=== PATIENT | female | born 1980 | race Caucasian/White ===

== ENCOUNTER → 2016-12-01 | Outpatient (CLI) | payer BC ==
[~2016-12-01] MED LIST: PRENTAB26 PO
[2016-12-01 10:33] LABS: HEMATOCRIT 35.6 % (37-47)
[2016-12-01 12:33] LABS: URINE APPEARANCE CLOUDY (CLEAR); URINE BILIRUBIN NEG (NEG); URINE COLOR DK YELLOW; URINE EPITHELIAL CELL AUTO >30 /lpf (0-5); URINE NITRITE NEG (NEG); URINE PH 6.5 (4.5-7.5); URINE SPECIFIC GRAVITY 1.015 (1.000-1.030); UROBILINOGEN NEG (NEG)
[2016-12-01 12:37] LABS: GTGD 50 Grams
[2016-12-01 12:42] LABS: MANUAL MICROSCOPIC REQUIRED? NO; REVIEW REQ? NO
== END | disposition home or self-care (01) ==
LOC: C.LAB1850 09:26
PROVIDERS: ATTEND Obstetrics & Gynecology
DX: O09.02 Supervision of pregnancy with history of infertility, second trimester (principal)

== ENCOUNTER → 2016-12-19 | Outpatient (CLI) | payer BC | END | disposition home or self-care (01) | LOC: C.LABBC 15:04 | PROVIDERS: ATTEND Obstetrics & Gynecology | DX: O23.40 Unspecified infection of urinary tract in pregnancy, unspecified trimester (principal) ==

== ENCOUNTER → 2017-01-26 | Outpatient (CLI) | payer BC | END | disposition home or self-care (01) | LOC: C.LABSPEC 13:53 | PROVIDERS: ATTEND Obstetrics & Gynecology | DX: O09.03 Supervision of pregnancy with history of infertility, third trimester (principal); Z3A.00 Weeks of gestation of pregnancy not specified ==

== ENCOUNTER 2017-02-10 20:48 | Inpatient (IN) | payer BC ==
[~2017-02-10] VITALS: Ht 167.6 cm; Wt 103.2 kg
[2017-02-10] MEDS ORDERED: LACTATED RINGER'S 1000ML 1,000 ML IV PRN (20:54)
[2017-02-10 21:28] LABS: HEMATOCRIT 36.5 % (37-47); MEAN CELL VOLUME 89.5 fL (80-100); MEAN CORPUSCULAR HEMOGLOBIN 31.4 pg (25-34); MEAN CORPUSCULAR HGB CONC 35.1 g/dl (32-36); MEAN PLATELET VOLUME 8.6 fL (7.4-10.4); PLATELET COUNT 237 K/uL (130-400); RED BLOOD COUNT 4.08 M/uL (4.2-5.4); WHITE BLOOD COUNT 19.52 K/uL (4.8-10.8)
[2017-02-11] MEDS ORDERED: EpHEDrine SULFATE INJ 50 MG/ML AMP ONE (00:45)
[2017-02-11] MEDS ORDERED: BUPIVACAINE 0.25% 30 ML VIAL ONE (00:45)
[2017-02-11] MEDS ORDERED: FENTANYL 2MCG/ML ROPIV 1.25MG/ML 100ML BAG EPI ONE (00:46)
[2017-02-11] MEDS ORDERED: FENTANYL CITRATE INJ 50 MCG/1 ML 2 ML VIAL ONE (00:46)
[2017-02-11] MEDS: LACTATED RINGER'S 1000ML 1,000 ML IV SCH ×2 (00:55→04:54)
[2017-02-11] MEDS ORDERED: LACTATED RINGER'S 1000ML 500 ML IV PRN (01:14)
[2017-02-11] MEDS ORDERED: NALOXONE HCL INJ 0.4 MG/1 ML VIAL/CARP IV PRN (01:15)
[2017-02-11] MEDS ORDERED: EpHEDrine SULFATE INJ 50 MG/ML AMP IV PRN (01:15)
[2017-02-11 05:37] VITALS: Ht 167.6 cm; Wt 103.2 kg
[2017-02-11] MEDS ORDERED: PRENTAB26 PO (05:41)
[2017-02-11] MEDS: FENTANYL 2MCG/ML ROPIV 1.25MG/ML 100ML BAG EPI PRN ×2 (06:54→10:36)
[2017-02-11] MEDS ORDERED: OXYTOCIN 30 UNITS/500ML NSS IV ONE (09:44)
[2017-02-11] MEDS ORDERED: LACTATED RINGER'S 1000ML 1,000 ML IV SCH (11:51)
[2017-02-11] MEDS ORDERED: ACETAMINOPHEN 325 MG TAB PO PRN (12:00)
[2017-02-11] MEDS ORDERED: ACETAMINOPHEN/CODEINE 300/30MG TAB PO PRN ×2 (12:00)
[2017-02-11] MEDS ORDERED: OXYTOCIN 30 UNITS/500ML NSS IV PRN (12:00)
[2017-02-11] MEDS ORDERED: HYDROCORTISONE ACETATE 25 MG SUPP PR PRN (12:00)
[2017-02-11] MEDS ORDERED: DIPHTHERIA/TETANUS/PERTUSSIS 0.5 ML SYR/VIAL IM. ONE (12:00)
[2017-02-11] MEDS ORDERED: BENZOCAINE 20% AER SPR 82.5 GM CAN EXT PRN (12:00)
[2017-02-11] MEDS ORDERED: LANOLIN OINT EXT PRN ×2 (12:00)
[2017-02-11] MEDS ORDERED: SUPERCREAM 0.870 % 15GM JAR EXT PRN (12:00)
--- NOTE | 2017-02-11 12:56 | Anesthesia Procedure Note ---
Anesthesia Epidural Removal Nt Date & Time Feb 11, 2017 at 12:55 Notes Mental Status: alert / awake / arousable, participated in evaluation Nausea / Vomiting: adequately controlled Pain: adequately controlled Airway Patency, RR, SpO2: stable & adequate BP & HR: stable & adequate Hydration State: stable & adequate Neuraxial Anesthesia: was administered Anesthetic Complications: no major complications apparent, pt satisfied with anesthetic care Epidural: removed without complications, with tip intact
[2017-02-11] MEDS: IBUPROFEN 600 MG TAB PO PRN ×2 (13:53→21:33)
--- NOTE | 2017-02-11 14:31 | DELIVERY SUMMARY ---
DATE OF OPERATION: 02/11/2017 VAGINAL DELIVERY NOTE PREOPERATIVE DIAGNOSES: 1. Mcpherson intrauterine at 39 weeks. 2. Group B negative. POSTOPERATIVE DIAGNOSES: Same. PROCEDURE: Vaginal delivery with repair of second degree laceration. SURGEON: Lisa Smith MD BUILDING CONSULTANT: None. ESTIMATED BLOOD LOSS: 500. COMPLICATIONS: None. DISPOSITION: Stable in labor and delivery. DESCRIPTION OF PROCEDURE: Angelo is a , who presented at 39 weeks. She was initially cared for by my partner Dr. Meeks, and I assumed care of patient when she was completely dilated and beginning to push on the morning of February 11. She pushed well and after just under 2 hours, I was called to patient's room for delivery. The patient was prepped and over the next several pushes, she delivered the head of the which was noted to be in direct occiput posterior position with some swelling on the forehead, consistent with a partially extended presentation. Once the face and head had delivered, the shoulders and remainder of the infant followed with no difficulty. There was a very loose nuchal cord x1 which was easily reduced after delivery of the head and prior to delivery of the shoulders. The infant was placed on the maternal abdomen where it was noted to make respiratory efforts and move all 4 extremities equally, and the cord was doubly clamped and cut by the father of the baby. Attention was turned to the vagina and perineum, where a large posterior vaginal laceration was noted which extended down through the rectovaginal septum and perineum, but did not disrupt either the anal sphincter or the rectal mucosa. Therefore, this is a second degree laceration, however, it was fairly extensive. The repair began with suture in a running locked manner of the posterior vaginal epithelium, this was closed from its apex near the cervix and all the way down to the hymenal ring. [place] sutures were then used to reapproximate the perineal body and closed the rectovaginal space. Once this was done, additional suture was used to reapproximate the perineum and closed skin in a running subcuticular manner. Both at the beginning and at the end of the repair, and rectal exam was done at first to ensure that the sphincter and mucosa were intact. On the completion of the repair, it was repeated to ensure that no suture had penetrated into the rectal space. EBL was estimated at 500 mL. By completion of the repair, the placenta had began to detach and this has been delivered spontaneously and was noted to be intact with the 3-vessel cord. The fundus is firm and lochia is minimal at the present time, and mother and were in stable condition having tolerated delivery well. I attest to the content of the Intraoperative Record and any orders documented therein. Any exceptions are noted below. MTDD
[2017-02-11 15:30] VITALS: BP 120/83; PULSE 109; TEMP 36.7
[2017-02-11 20:20] VITALS: BP 104/70; PULSE 103; TEMP 36.5
[2017-02-11] MEDS: DOCUSATE SODIUM 100 MG CAP PO SCH (20:48)
[2017-02-12 00:25] VITALS: BP 108/70; PULSE 97; TEMP 36.5
[2017-02-12] MEDS: IBUPROFEN 600 MG TAB PO PRN ×4 (00:35→19:52)
[2017-02-12 04:45] VITALS: BP 103/68; PULSE 102; TEMP 36.5
[2017-02-12 07:34] LABS: HEMATOCRIT 27.6 % (37-47)
[2017-02-12 07:50] VITALS: BP 116/78; PULSE 91; TEMP 36.7
[2017-02-12] MEDS: DOCUSATE SODIUM 100 MG CAP PO SCH ×2 (07:59→19:53)
[2017-02-12] MEDS: PRENATAL VITAMIN TAB PO SCH (07:59)
--- NOTE | 2017-02-12 08:38 | Progress Note ---
Subjective Feb 12, 2017. Subjective conversation w/ patient, physical exam Ambulation: ambulating normally Voiding: no voiding problems Passing Gas: Yes Diet Tolerance: Regular Diet [place]ochia: Moderate Feeding Type: Breast Feeding Review of Systems Constitutional: No chills, No fever Respiratory: No cough Cardiac: No chest pain Abdomen: No nausea, No vomiting Objective Vital Signs Date Time Temp Pulse Resp B/P Pulse Ox O2 Delivery O2 Flow Rate FiO2 02/12/17 04:45 36.5 102 18 103/68 Room Air 02/12/17 00:25 Room Air 02/12/17 00:25 36.5 97 18 108/70 Room Air 02/11/17 20:20 36.5 103 14 104/70 Room Air 02/11/17 15:30 36.7 109 22 120/83 Physical Exam General Appearance: WELL-APPEARING, NO APPARENT DISTRESS Respiratory/Chest: no respiratory distress, no accessory muscle use Cardiovascular: no edema Abdomen: non tender, soft Fundus: Firm Extremities: no calf tenderness Laboratory Results Last 24 Hours Test 02/12/17 06:24 Hemoglobin 9.5 g/dL Hematocrit 27.6 % Assessment and Plan Problem List Medical Problems: (1) Threatened in early Status: Acute Post- Day#: 1
[2017-02-12 15:35] VITALS: BP 112/78; PULSE 96; TEMP 36.9; O2SAT 99
[2017-02-12 23:55] VITALS: BP 106/68; PULSE 88; TEMP 36.7; O2SAT 94
--- NOTE | 2017-02-13 06:44 | Progress Note ---
Subjective Feb 13, 2017. Subjective conversation w/ patient, physical exam Ambulation: ambulating normally Voiding: no voiding problems Passing Gas: Yes Diet Tolerance: Regular Diet Lochia: Moderate Feeding Type: Breast Feeding Pain: 2/10 improves with medication Comment: Patient was seen at the bedside. No acute event overnight. Review of Systems Constitutional: No fever Respiratory: No cough, No shortness of breath Cardiac: No chest pain Breast: No breast lump Abdomen: No nausea, No pain, No vomiting Female : No dysuria denies headache Objective Vital Signs Date Time Temp Pulse Resp B/P Pulse Ox O2 Delivery O2 Flow Rate FiO2 02/12/17 23:55 94 Room Air 02/12/17 23:55 36.7 88 18 106/68 94 Room Air 02/12/17 15:35 36.9 96 18 112/78 Room Air 02/12/17 15:35 99 Room Air 02/12/17 07:50 36.7 91 20 116/78 Physical Exam General Appearance: WELL-APPEARING, WD/WN Respiratory/Chest: chest non-tender, lungs clear, normal breath sounds Cardiovascular: regular rate, rhythm Abdomen: normal bowel sounds, non tender, soft Fundus: Firm, Relation to Umbilicus (3cm below) Extremities: non-tender, no calf tenderness, + pedal edema (b/l L>R) Medications Current Inpatient Medications Medications (Trade) Dose Ordered Sig/[place] Route Start Time Stop Time Status Last Admin Dose Admin Lactated Ringer's (Lr 1000ml) 1,000 ml @ 125 mls/hr Q8H IV 02/11/17 11:51 03/13/17 11:50 Oxytocin (Pitocin IV) 30 units UD PRN IV 02/11/17 12:00 03/13/17 11:59 Benzocaine (Dermoplast Aero Spr) 1 appln PRN PRN EXT 02/11/17 12:00 03/13/17 11:59 02/11/17 15:49 1 APPLN Cocaine HCl (Supercream 0.870% Cr) BID PRN EXT 02/11/17 12:00 02/25/17 11:59 Hydrocortisone Acetate (Anusol Hc Supp) 25 mg BID PRN KS 02/11/17 12:00 03/13/17 11:59 Lanolin (Lanolin Oint) PRN PRN EXT 02/11/17 12:00 03/13/17 11:59 Prenat Multivit/ [place]/Iron/Folic Ac ( Vitamin Tab) 1 tab DAILY PO 02/12/17 08:00 03/14/17 07:59 02/12/17 07:59 1 TAB Ibuprofen (Motrin Tab) 600 mg Q4H PRN PO 02/11/17 12:00 03/13/17 11:59 02/12/17 19:52 600 MG Acetaminophen (Tylenol Tab) 650 mg Q6H PRN PO 02/11/17 12:00 03/13/17 11:59 02/11/17 15:47 650 MG Acetaminophen/ Codeine Phosphate (Tylenol w/ Codeine #3 Tab) 1 tab Q4H PRN PO 02/11/17 12:00 03/13/17 11:59 Acetaminophen/ Codeine Phosphate (Tylenol w/ Codeine #3 Tab) 2 tab Q4H PRN PO 02/11/17 12:00 03/13/17 11:59 Docusate Sodium (coLACE CAP) 100 mg BID PO 02/11/17 20:00 03/13/17 19:59 02/12/17 19:53 100 MG Assessment and Plan Problem List Medical Problems: (1) Threatened in early Status: Acute Post- Day#: 2 Continue Routine Care: A/P: This is a 36 y/o female, , s/p normal vaginal delivery/. She is ambulating and clinically stable to discharge. - Vital signs are reviewed and WNL (Tmax 36.9 ) - Last Hgb 9.5 - Blood type A+, GBS neg, Rubella Immune - No signs of depression. - Routine care - Discussed resting, feeding, pain control, mastitis, control, follow up in 6 weeks and reasons to call sooner, if necessary. - Continue with pain medication as needed, and continue vitamins. - Encourage breast feeding and educate about breast feeding - Patient understands and keen for home. - Plan to discharge home Resident Physician Supervision Note: I was present with Dr. Madrid during the history and exam. I discussed the case with the resident and agree with the findings and plan as documented in the note. Any exceptions or clarifications are listed here: [None] Documented By: Lisa Smith
--- NOTE | 2017-02-13 07:03 | Discharge Instructions ---
Discharge Instructions Date of Service Feb 12, 2017. Admission Reason for Admission: Check Labor Discharge Discharge Diagnosis / Problem: s/p normal vaginal delivery Discharge Goals Goal(s): Routine recovery after delivery Medications Continue Dispensed Medications: supercream, dermaplast, tucks, lansinoh Activity Recommendations Activity Limitations: as noted below . Instructions / Follow-Up Instructions / Follow-Up ACTIVITY RECOMMENDATIONS: * Gradual return to full activity over the next 2-3 weeks. * No lifting - nothing heavier than baby over the next 2-3 weeks. * Do not engage in vigorous exercise, sexual activity or sports until cleared by your physician. * Do not drive or operate any motorized equipment until cleared by your physician. * You may shower/bathe daily. MEDICATIONS: For discomfort or pain, you may use Acetaminophen (Tylenol), Ibuprofen (Advil), or Naproxen (Aleve) following the package directions. For constipation you may use Colace following the package directions. BREAST CARE: If you are not breast feeding: * Wear a supportive bra 24 hours a day for one to two weeks. * Avoid stimulating your breasts and nipples as much as possible during the first few weeks after delivery. * When taking a shower, have the warm water hit your back, not breasts. * When your breasts feel full, apply ice packs. Usually three to four times a day helps ease the discomfort. * Take a mild pain medication (Tylenol / Motrin) when you are uncomfortable. If breast feeding: * Use breast milk to lubricate nipples. Lansinoh cream may be used for sore nipples. You do not need to remove cream prior to breast feeding. If using a different brand of cream, check the label for directions regarding removal of cream prior to nursing. * Wear a supportive bra. * If having problems with breasts or breast feeding, call a sap bw consultant or your health care provider. EPISIOTOMY CARE: After delivery, if you have an episiotomy (stitches), the following steps will ease discomfort and aid healing. * For the first 24 hours after delivery, place ice packs next to your episiotomy to help reduce swelling. * After the first 24 hour-period, sitz baths, either portable or in the tub, are suggested. A shower with a shower arm sprayed over the episiotomy may be comforting. * [place] care should be done after each voiding and bowel movement. Squirt warm water from a plastic bottle over the perineum (region of the body between the anus and urinary opening) and pat dry. * Use Dermoplast to ease discomfort. Shake container. [place] directly over the episiotomy. Place a Tucks on a clean sanitary pad next to your episiotomy. SPECIAL CARE INSTRUCTIONS: When you are discharged from the hospital, it is important for you to follow the instructions listed below: * During the first week at home, you should be able to care for yourself and your baby. In addition, the usual light household activities are encouraged. * Limit your activities to the way you feel. Do not try to clean the house or move furniture. Be sensible. * If you actively engage in sports and have done so up until the time of your delivery, you may resume these activities as soon as you feel able. This may take up to one month or even longer. Use good judgment. * Continue to take your vitamins for at least six weeks after the of your baby. * Your diet need not be limited unless you were on a special diet before your delivery. Breast-feeding mothers need around 2500 calories per day and at least 64-80 ounces of fluid per day (8 to 10 glasses). * You should eat foods from the four major food groups. Crash diets or fad diets are to be avoided. Eating lean meats, fresh fruits and vegetables, low-fat dairy products, high fiber foods and a regular exercise program, will help you get back to your pre- weight without putting your health at risk. * Constipation is sometimes a problem after delivery. Take a mild laxative as needed. If breast feeding, Milk of Magnesia is acceptable to use. You may use a suppository or Fleets enema if no episiotomy. * A daily shower or tub bath is suggested. Be sure to thoroughly and gently dry the perineum. * A bloody vaginal discharge will usually continue until around four weeks post . A small amount of bleeding may continue for as long as six weeks. Vaginal discharge changes from the bright red bleeding after delivery to pink then brownish and finally yellowish-pink before becoming white and disappearing. * Bleeding may increase with activity. Your first period may come in 4-8 weeks. If you are breast feeding, your period may be delayed even longer. * [place] (sex) can begin whenever both you and your partner feel comfortable and do not have any form of genital infection. It is recommended that you wait at least six weeks for internal and external healing to occur. If you have questions, please talk to your health care practitioner. A condom should be used to prevent infection and . * Foreplay, gentle intercourse and lubrication is very important the first several times to prevent pain. A water-based lubricant such as K-Y jelly or Astroglide may be used. * If you have RH negative blood and your baby is RH positive, you will receive RHOGAM by injection prior to discharge. The nurse will give you a card to keep with you that has the date and place that you received RHOGAM after delivery. * During your care, you had a Rubella screen done to check for the presence of rubella antibodies in your blood. If your test was negative, you will receive a Rubella vaccine prior to discharge. This vaccine may cause a fever, soreness at the injection site and flu-like symptoms. If these symptoms persist, notify your health care practitioner. is not advised for one month after a Rubella vaccine. * Verbalizes understanding of car seat law as reviewed with patient nursing. * Car Seat hand-out given and reviewed with patient by nursing. * Shaken baby information reviewed with patient by nursing. Call you doctor if: * Heavy bleeding (saturating several pads an hour) or passing clots the size of your fist. * A fever >101 degrees F (38.3 degrees C) on two occasions four hours apart and /or chills. * Unusual pain in the pelvic or vaginal areas. * "Baby Blues" lasting longer than two weeks. If you have any questions or concerns, call your health care practitioner at . FOLLOW UP VISIT: * Please call the office at to schedule a 6 week examination. It is important you keep this appointment. It is important for you to make arrangements for either yearly or twice yearly check-ups thereafter. Current Hospital Diet Patient's current hospital diet: Regular OB Diet Discharge Diet Recommended Diet: Regular Diet Pending Studies Studies pending at discharge: no Medical Emergencies . Who to Call and When: Medical Emergencies: If at any time you feel your situation is an emergency, please call 911 immediately. . Non-Emergent Contact Non-Emergency issues call your: Telehealth Nurse Educator Call Non-Emergent contact if: you have a fever, temperature is above 101 . . "Provider Documentation" section prepared by Annia Madrid. VTE Core Measure Inpt VTE Proph given/why not?: Treatment not indicated
[2017-02-13 08:00] VITALS: BP 110/77; PULSE 91; TEMP 36.7
[2017-02-13] MEDS: PRENATAL VITAMIN TAB PO SCH (08:03)
[2017-02-13] MEDS: IBUPROFEN 600 MG TAB PO PRN (08:03)
[2017-02-13] MEDS: DOCUSATE SODIUM 100 MG CAP PO SCH (08:03)
[2017-02-13 13:30] VITALS: BP_DIAS 77; PULSE 91; TEMP 36.7
== END 2017-02-13 14:00 | disposition home or self-care (01) | DRG 775 ==
LOC: C.OPB 20:48 → C.LD 20:48 → C.OPB 20:56 → C.LD 20:56 → C.OBG 02-11 15:29
PROVIDERS: ADMIT Obstetrics & Gynecology; ATTEND Obstetrics & Gynecology
PROC: 10E0XZZ Delivery of Products of Conception, External Approach (ICD-10-PCS; principal; 2017-02-11)
PROC: 0KQM0ZZ Repair Perineum Muscle, Open Approach (ICD-10-PCS; principal; 2017-02-11)
DX: O70.1 Second degree perineal laceration during delivery (principal); Z37.0 Single live birth; O69.81X0 Labor and delivery complicated by cord around neck, without compression, not applicable or unspecified; Z3A.39 39 weeks gestation of pregnancy

== ENCOUNTER → 2018-01-01 | Outpatient (CLI) | payer BC ==
[2018-01-01 13:34] LABS: BASO % 0.1 %; BASO ABS # 0.01 K/uL (0-0.2); EOS % 1.8 %; EOS ABS # 0.17 K/uL (0-0.5); HEMATOCRIT 41.2 % (37-47); HEMOGLOBIN 13.9 g/dL (12.0-16.0); IG# 0.01 K/uL (0.00-0.02); LYMPH % 23.7 %; LYMPH ABS # 2.19 K/uL (1.2-3.4); MEAN CELL VOLUME 90.2 fL (80-100); MEAN CORPUSCULAR HEMOGLOBIN 30.4 pg (25-34); MEAN CORPUSCULAR HGB CONC 33.7 g/dl (32-36); MEAN PLATELET VOLUME 9.1 fL (7.4-10.4); MONO % 5.1 %; MONO ABS # 0.47 K/uL (0.11-0.59); NEUT % 69.2 %; NEUT ABS # 6.41 K/uL (1.4-6.5); PLATELET COUNT 341 K/uL (130-400); RED CELL DISTRIBUTION WIDTH CV 12.8 % (11.5-14.5); RED CELL DISTRIBUTION WIDTH SD 41.8 fL (36.4-46.3); WHITE BLOOD COUNT 9.26 K/uL (4.8-10.8)
[2018-01-01 15:11] LABS: ALBUMIN 3.4 gm/dl (3.4-5.0); BLOOD UREA NITROGEN 14 mg/dl (7-18); CALCIUM 9.2 mg/dl (8.5-10.1); CARBON DIOXIDE 24 mmol/L (21-32); CREATININE 0.82 mg/dl (0.60-1.20); GLUCOSE 79 mg/dl (70-99); POTASSIUM 3.7 mmol/L (3.5-5.1); SODIUM 136 mmol/L (136-145)
[2018-01-01 15:23] LABS: ALKALINE PHOSPHATASE 75 U/L (45-117); ALT/SGPT 21 U/L (12-78); AST/SGOT 15 U/L (15-37); TOTAL PROTEIN 7.2 gm/dl (6.4-8.2)
== END | disposition home or self-care (01) ==
LOC: C.LABBC 11:12
PROVIDERS: ATTEND Physician Assistant Medical
DX: R53.83 Other fatigue (principal)